=== PATIENT | male | born 1950 | race Caucasian/White ===

== ENCOUNTER → 2017-07-03 | Outpatient (CLI) | payer MEDICARE, OTHER ==
[~2017-07-03] MED LIST: ALLO300 PO; ASPI81CH PO; ATEN25 PO; Bactrim 400-801 EACH; FISH1000 PO; GLUC500; Hair, Skin & N1 EACH; IBUP800; LOSHYD PO; ONE A DAY VITAMIN PO; [UNRECOGNIZED DRUG - OTHER] PO
== END | disposition home or self-care (01) ==
LOC: PLD 07:38 → LAB SHORT 07:38
DX: D22.5 Melanocytic nevi of trunk (principal)
CPT/HCPCS: 88304; 88305; 88342

== ENCOUNTER → 2017-07-17 | Outpatient (CLI) | payer MEDICARE, OTHER | END | disposition home or self-care (01) | LOC: LAB SHORT → PLD | DX: D03.4 Melanoma in situ of scalp and neck (principal) | CPT/HCPCS: 88305 ==

== ENCOUNTER → 2017-07-31 | Outpatient (CLI) | payer MEDICARE, OTHER | END | disposition home or self-care (01) | LOC: LAB SHORT 07:47 → PLD 07:47 | DX: D35.00 Benign neoplasm of unspecified adrenal gland (principal) | CPT/HCPCS: 88305 ==

== ENCOUNTER 2018-02-06 06:41 | Day surgery (SDC) | payer MEDICARE, OTHER ==
[~2018-02-06] VITALS: Ht 185.4 cm; Wt 103.7 kg
[~2018-02-06 06:41] MED LIST changes: -GLUC500; -Hair, Skin & N1 EACH
[2018-02-06] MEDS ORDERED: Hair, Skin & N1 EACH (07:11)
[2018-02-06] MEDS ORDERED: GLUC500 (07:11)
== END 2018-02-06 08:40 | disposition home or self-care (01) ==
LOC: ORSCSDS 06:41
PROVIDERS: Internal Medicine Gastroenterology
PROC: 0DJ08ZZ Inspection of Upper Intestinal Tract, Via Natural or Artificial Opening Endoscopic (ICD-10-PCS; principal; 2018-02-06 08:00)
DX: K74.60 Unspecified cirrhosis of liver (principal); I10 Essential (primary) hypertension; E83.52 Hypercalcemia; R00.1 Bradycardia, unspecified; E78.5 Hyperlipidemia, unspecified; Z86.19 Personal history of other infectious and parasitic diseases; F17.210 Nicotine dependence, cigarettes, uncomplicated; Z79.82 Long term (current) use of aspirin; Z79.899 Other long term (current) drug therapy
CPT/HCPCS: J0330; J1980; J2405; J7120

== ENCOUNTER 2022-04-13 07:10 | Day surgery (SDC) | payer MEDICARE ==
[~2022-04-13] VITALS: Ht 182.9 cm; Wt 99.0 kg
[~2022-04-13 07:10] MED LIST changes: +GLUC500; +Hair, Skin & N1 EACH
== END 2022-04-13 09:08 | disposition home or self-care (01) ==
LOC: ORSCSDS 07:10
PROVIDERS: Internal Medicine Gastroenterology
PROC: 0DBP8ZX Excision of Rectum, Via Natural or Artificial Opening Endoscopic, Diagnostic (ICD-10-PCS; principal; 2022-04-13 08:30)
DX: Z12.11 Encounter for screening for malignant neoplasm of colon (principal); K62.1 Rectal polyp; K64.4 Residual hemorrhoidal skin tags; K57.30 Diverticulosis of large intestine without perforation or abscess without bleeding; Z86.010 Personal history of colon polyps; K74.60 Unspecified cirrhosis of liver; I10 Essential (primary) hypertension; Z86.19 Personal history of other infectious and parasitic diseases; Z85.46 Personal history of malignant neoplasm of prostate; F17.210 Nicotine dependence, cigarettes, uncomplicated
CPT/HCPCS: 88305; J2704

== ENCOUNTER 2023-05-03 09:09 | Day surgery (SDC) | payer OTHER ==
[~2023-05-03] VITALS: Ht 185.4 cm; Wt 110.0 kg
[2023-05-03 11:28] VITALS: BP 145/86
--- NOTE | 2023-05-03 11:30 | NUR ---
05/03/23 1130 Mayte Sharp IV. PT TOLERATED WELL. CATH INTACT. GAUZE/COBAN IN PLACE
== END 2023-05-03 11:30 | disposition home or self-care (01) ==
LOC: ORSCSDS 09:09
PROVIDERS: Internal Medicine Gastroenterology
PROC: 0DJ08ZZ Inspection of Upper Intestinal Tract, Via Natural or Artificial Opening Endoscopic (ICD-10-PCS; principal; 2023-05-03 10:30)
DX: K74.60 Unspecified cirrhosis of liver (principal); I10 Essential (primary) hypertension; Z87.19 Personal history of other diseases of the digestive system; Z86.19 Personal history of other infectious and parasitic diseases
CPT/HCPCS: J2704; J7120